=== PATIENT | female | born 1940 | race Caucasian/White ===

== ENCOUNTER → 2020-07-22 06:06 | Outpatient (CLI) | payer MEDICARE, SELFPAY ==
--- NOTE | 2020-07-22 06:08 | CA_ITS ---
APPROVED REPORT Exam: Pharmacologic Technologist: Oksana Goins Ht: 5 ft 3 in Wt: 144 lbs BSA: 1.68 m2 HR: 54 bpm BP: 180/80 mmHg Indications: Chest pain, abnormal ekg Medical History Medications: Omeprazole,,,,, Levothyroxine,,,,, Aspirin,,,,, Propranolol,,,,, Stress Test Details Test: LEXISCAN HR Resting HR: 52 bpm Max Heart Rate (APMHR): 139 bpm Max HR Achieved: 80 bpm Target HR (85% APMHR): 118 bpm % of APMHR: 57 Recovery HR: 64 bpm BP Resting BP: 180.0/80.0 mmHg Max BP: 180.0/80.0 mmHg Recovery BP: 170.0/70.0 mmHg ECG Clinical Exercise duration: 04:01 min Highest Stage Achieved: Exercise capacity: 1.0 METs Stress ECG Conclusion Resting ECG: Sinus Bradycardia Lexiscan portion completed. Patient denied any complaints during peak infusion. Symptoms: No chest pain. No shortness of breath during peak infusion. Arrhythmias/Ectopy: No ectopy ST-T Changes: Less than 1.[address] depression Conclusion: Images to follow. Test Summary . . Myoview Injected . . . . Stop exercise at 04:01 . . . . Electronically signed by : Ari Valencia, 07/23/2020 05:49:25
--- NOTE | 2020-07-22 06:08 | CA_ITS ---
APPROVED REPORT EXAM: Comprehensive 2D, Doppler, and color-flow Echocardiogram Wood Type Cutter: Sigrid Monte RVT Ht: 5 ft 3 in Wt: 144lbs BSA: 1.68 BP: 202/80 mmHg Indications: CP,ABN EKG,EX SMOKER,HTN 2D Dimensions LVOT 1.69 cm (M/F) 1.5-2.5 M-Mode Dimensions RVDd 2.94 cm (0.9-2.6) LA Diam 3.39 cm (1.9-4.0) LVDd 4.45 cm (3.5-5.7) Ao Diam 2.82 cm (2.0-3.7) LVDs 2.66 cm (3.5-5.7) IVSd 0.91 cm (0.6-1.1) PWd 1.16 cm (0.6-1.1) EF (Teich) 71.10% FS 40.20% EDV (Teich) 90.10 mL ESV (Teich) 26.00 mL LV Diastology E Decel Time 153.00 (160-240 msec) E/A Ratio 0.7 MED E' 6.00 (< 7 cm/sec) E'/MED E' Ratio 9.07 (>14) LAT E' 12.30 (<10 cm/sec) E/LAT E' Ratio 4.42 (>14) Aortic Valve AI PHT 726.00 ms Mitral Valve MV E Max Kai. 54.00 (40-130 cm/s) MV A Velocity 75.00 (40-130 cm/s) E/A Ratio 0.73 MV Decel. Time 153.00 (160-240 ms) MV PHT 45.00 ms Pulmonary Valve PV Peak Velocity 107.00 (50-150 cm/s) Tricuspid Valve TR P. Velocity 204.00 cm/s Left Ventricle Left atrium is mildly enlarged, left ventricle is normal size, mild concentric left ventricular hypertrophy, visually estimated ejection fraction 55% with no regional wall motion abnormality, grade 1 diastolic dysfunction seen without tissue Doppler evidence of raise left atrial pressure. Right Ventricle Right atrium and right ventricle are mildly enlarged with normal contractility. Aortic Valve Aortic valve is minimally thickened and fibrosed, there is no aortic stenosis, there is mild aortic insufficiency. Mitral Valve Mitral valve is grossly normal, there is mild mitral regurgitation. Tricuspid Valve Tricuspid valve is grossly normal, there is mild tricuspid regurgitation, tricuspid regurgitation jet velocity is inadequate for calculation of the right ventricular systolic pressure. Pulmonic Valve Pulmonic valve is poorly visualized. Great Vessels Aortic root is normal size. Pericardium No significant pericardial effusion noted. Conclusion 1. Mild biatrial enlargement, normal left ventricular size, mild concentric left ventricular hypertrophy, visually estimated ejection fraction 55% with no regional wall motion abnormality, grade 1 diastolic dysfunction seen without tissue Doppler evidence of raise left atrial pressure. 2. Mildly enlarged right ventricle with normal contractility. 3. Mild aortic, mild mitral and tricuspid regurgitation. 4. No significant pericardial effusion noted. Electronically signed by : Ari Valencia, 07/23/2020 05:28:52
--- NOTE | 2020-07-22 06:08 | NM_ITS ---
APPROVED REPORT Exam: Nuclear Stress Test Indication: HTN, Chest pain, Family history, Former tobacco use, Abnormal EKG Patient Location: Outpatient Stress Tech: Oksana Goins NM Tech:Vonnie Rich, ARRT, RT (R)(N) Ht: 5 ft 4 in Wt: 145 lbs Bra Size: 34D HR: 54 bpm BP: 180/80 mmHg BSA: 1.71 m2 BMI: 24.8 History: HTN, Chest pain, Family history, Former tobacco use, Abnormal EKG Procedure: Patient received a 0.4 mg of intravenous Lexiscan, resting heart rate 54 bpm, resting blood pressure 180/80 mmHg, with Lexiscan maximum heart rate achived was 77 bpm which is Less than 85 % of the maximum predicted heart rate and blood pressure was 166/83 mmHg. With Lexiscan, patient denied any complaint of chest pain. Electrocardiogram Resting electrocardiogram showed sinus rhythm, nonspecific ST-T changes, with Lexiscan there is less than 1.[address] segment depression noted from the baseline EKG. The EKG portion of the Lexiscan is nondiagnostic. Cardiac Stress and Resting SPECT Images: Cardiac Stress and Resting SPECT images were obtained using technetium 99m Myoview 30.0 mCi stress and 10.73 mCi at rest. Gated SPECT for analysis of segmental wall motion and calculation of the ejection fraction also done. Cardiac stress and resting SPECT images show uniform myocardial activity without segmental perfusion abnormality, computer derived ejection fraction is 49% with no regional wall motion abnormality, right ventricle is normal size and contractility. Conclusion: 1. The EKG portion of the Lexiscan Myoview is nondiagnostic. 2. No scintigraphic evidence of reversible ischemia seen, computer derived ejection fraction is 49% with no regional wall motion abnormality, right ventricle is normal size and contractility. 3. Normal Lexiscan Myoview study. Electronically signed by : Ari Valencia, 07/23/2020 05:58:10
--- NOTE | 2020-07-22 08:39 | HMH.ITSHM ---
Current Home Medications as stated by this patient Alayna Mcknight or policy services representative. []PROPRANOLOL OMEPRAZOLE LEVOTHYROXINE
== END ==
PROVIDERS: PCP Family Medicine; Visit Provider Internal Medicine Cardiovascular Disease
DX: R07.9 Chest pain, unspecified (principal); R94.31 Abnormal electrocardiogram [ECG] [EKG]; Z85.850 Personal history of malignant neoplasm of thyroid
CPT/HCPCS: 78452; 93017; 93306; A9502; J2785

== ENCOUNTER → 2020-08-03 09:30 | Outpatient (CLI) | payer MEDICARE, SELFPAY ==
[2020-08-03 10:11] LABS: Basophils # 0.1 K/mm3 (0-0.2); Basophils % 0.9 % (0.1-2.0); Eosinophils # 0.2 K/mm3 (0.0-0.4); Eosinophils % 2.8 % (0.1-12.0); Hematocrit 43.1 % (37.0-47.0); Hemoglobin 14.3 g/dL (12.2-16.2); Lymphocytes # 1.6 K/mm3 (0.7-4.5); Lymphocytes % 26.5 % (10-50); Mean Corpuscular HGB Conc 33.1 g/dL (31.8-35.4); Mean Corpuscular Hemoglobin 29.6 pg (27.0-31.2); Mean Corpuscular Volume 89.5 fl (81-99); Mean Platelet Volume 7.6 fl (7.4-10.4); Monocytes # 0.4 K/mm3 (0.1-1.0); Monocytes % 6.1 % (1.7-9.3); Neutrophils # 3.7 K/mm3 (1.8-7.8); Neutrophils % 63.7 % (37.0-80.0); Platelet Count 216 K/mm3 (142-424); Red Blood Count 4.82 M/mm3 (4.20-5.40); Red Cell Distribution Width 12.6 % (11.5-17.5); White Blood Count 5.8 K/mm3 (4.8-10.8)
[2020-08-03 10:25] LABS: Chloride 101 mmol/L (98-107); Potassium 4.8 mmoL/L (3.5-5.1); Sodium 138 mmol/L (136-145)
[2020-08-03 10:28] LABS: Anion Gap 10.8 mEq/L (5-15); Blood Urea Nitrogen 20 mg/dl (7-17); Calcium 9.9 mg/dl (8.4-10.2); Carbon Dioxide 31 mmol/L (22.0-30.0); Estimated Glomerular Filt Rate 69 ml/min (>60); GFR (African American) 83 ML/MIN (>60); Glucose 94 mg/dl (74-100)
[2020-08-03 10:45] LABS: Coronavirus 19 IgG Antibody Positive (Negative); Coronavirus 19 IgM Antibody Negative (Negative)
== END ==
PROVIDERS: Visit Provider Internal Medicine
DX: Z01.818 Encounter for other preprocedural examination (principal); R07.9 Chest pain, unspecified
CPT/HCPCS: 36415; 80048; 85025; 86328

== ENCOUNTER 2020-08-05 07:53 | Day surgery (SDC) | payer MEDICARE, SELFPAY ==
[2020-08-05] VITALS (13 sets, daily range): BP systolic 124–214; BP diastolic 3–108; PULSE 47–60; RESP 17–18; TEMP 36.5; O2SAT 95–100; BMI 25.4
--- NOTE | 2020-08-05 | IR_ITS ---
APPROVED REPORT Patient Location: Outpatient PROCEDURES Left heart catheterization Selective coronary angiogram Left ventriculogram INDICATION recalcitrant angina pectoris Informed consent was obtained prior to the procedure. COMPLICATIONS NONE Estimated Blood Loss: LESS THAN 10 ML TECHNIQUE One percent lidocaine used to anesthetize the right anterior aspect of the wrist. The right radial artery was accessed via the Seldinger technique. A 6 Icelandic sheath was placed in the right radial artery. 2.5 mg of verapamil, 800 mcg of nitroglycerin, 1mg Lidocaine and 5000 U Heparin were given through the arterial sheath. The trap catheter was also used to perform left heart catheterization, left ventriculogram and selective coronary angiogram. At the end of the procedure the sheath was removed good hemostasis was achieved using Traclet band, patient was transfer to the postop holding area in stable condition. ANGIOGRAPHIC RESULTS The left main artery normal The left anterior descending artery has proximal and midvessel 10-20% atherosclerotic plague The circumflex artery Is a codominant vessel and has mild mid vessel 20% stenoses The right coronary artery Is a large codominant vessel and has mild-moderate mid vessel 30 to 40% concentric stenosis The KATE ventriculogram reveals Normal 65% The left ventricular end-diastolic pressure 10 mmHg IMPRESSION Mild to moderate nonflow limiting coronary artery disease as described above Normal ejection fraction Normal left ventricular end-diastolic pressure PLAN 1. Medical management Electronically signed by : Anthony Song, 08/05/2020 10:07:12
== END 2020-08-05 13:36 | disposition home or self-care (01) ==
LOC: CATHLAB 07:55
PROVIDERS: PCP Family Medicine; Visit Provider Internal Medicine
DX: R07.9 Chest pain, unspecified (principal); I25.10 Atherosclerotic heart disease of native coronary artery without angina pectoris; Z87.891 Personal history of nicotine dependence; Z85.850 Personal history of malignant neoplasm of thyroid; E03.9 Hypothyroidism, unspecified; Z79.899 Other long term (current) drug therapy
CPT/HCPCS: 93458; 99152; C1725; C1769; J1644; Q9967

== ENCOUNTER → 2020-11-15 14:53 | Outpatient (CLI) | payer MEDICARE, SELFPAY ==
[2020-11-15 17:04] LABS: Basophils # 0.1 K/mm3 (0-0.2); Eosinophils # 0.2 K/mm3 (0.0-0.4); Eosinophils % 3.5 % (0.1-12.0); Hematocrit 40.5 % (37.0-47.0); Lymphocytes # 1.7 K/mm3 (0.7-4.5); Lymphocytes % 25.6 % (10-50); Mean Corpuscular HGB Conc 32.2 g/dL (31.8-35.4); Mean Corpuscular Hemoglobin 29.9 pg (27.0-31.2); Mean Corpuscular Volume 92.8 fl (81-99); Mean Platelet Volume 8.1 fl (7.4-10.4); Monocytes # 0.4 K/mm3 (0.1-1.0); Monocytes % 5.2 % (1.7-9.3); Neutrophils # 4.3 K/mm3 (1.8-7.8); Neutrophils % 64.7 % (37.0-80.0); Platelet Count 203 K/mm3 (142-424); Red Blood Count 4.36 M/mm3 (4.20-5.40); Red Cell Distribution Width 12.9 % (11.5-17.5); White Blood Count 6.7 K/mm3 (4.8-10.8)
[2020-11-15 17:09] LABS: Alanine Aminotransferase 12 U/L (12-78); Albumin Level 3.7 g/dl (3.5-5.0); Albumin/Globulin Ratio 1.1 (1.1-1.8); Alkaline Phosphatase 83 U/L (38-126); Anion Gap 10.6 mEq/L (5-15); Aspartate Amino Transferase 24 U/L (14-36); Bilirubin,Total 0.8 mg/dl (0.2-1.3); Blood Urea Nitrogen 20 mg/dl (7-17); Calcium 9.4 mg/dl (8.4-10.2); Carbon Dioxide 28 mmol/L (22.0-30.0); Chloride 105 mmol/L (98-107); Cholesterol 132 mg/dl (140-200); Estimated Glomerular Filt Rate 80 ml/min (>60); GFR (African American) 97 ML/MIN (>60); Globulin 3.3 g/dL (1.3-3.2); Glucose 105 mg/dl (74-100); HDL Cholesterol 67 mg/dl (40-60); Potassium 4.6 mmoL/L (3.5-5.1); Sodium 139 mmol/L (136-145); Triglycerides 82 mg/dl (30-150); VLDL Cholesterol 16 mg/dL (0-40)
[2020-11-15 17:20] LABS: Direct LDL Cholesterol 43.35 mg/dL (100-129)
[2020-11-15 17:26] LABS: T4 (Thyroxine) 15.5 ug/dl (5.53-11.0)
[2020-11-15 17:40] LABS: Thyroid Stimulating Hormone < 0.02 uIU/mL (0.465-4.68)
== END ==
PROVIDERS: Visit Provider Family Medicine
DX: E78.5 Hyperlipidemia, unspecified (principal); I10 Essential (primary) hypertension; I25.10 Atherosclerotic heart disease of native coronary artery without angina pectoris; Z85.850 Personal history of malignant neoplasm of thyroid
CPT/HCPCS: 80053; 80061; 84436; 84443; 85025

== ENCOUNTER → 2021-05-16 15:30 | Outpatient (CLI) | payer MEDICARE, SELFPAY ==
[2021-05-16 16:26] LABS: Free T4 (Free Thyroxine) 1.73 ng/dl (0.78-2.19)
[2021-05-16 18:02] LABS: Thyroid Stimulating Hormone < 0.02 uIU/mL (0.465-4.68)
== END ==
PROVIDERS: Visit Provider Family Medicine
DX: E03.9 Hypothyroidism, unspecified (principal)
CPT/HCPCS: 84439; 84443

== ENCOUNTER → 2022-05-09 09:26 | Outpatient (CLI) | payer MEDICARE, SELFPAY ==
[2022-05-08 19:01] LABS: Alanine Aminotransferase 15 U/L (12-78); Albumin Level 3.5 g/dl (3.5-5.0); Albumin/Globulin Ratio 1.1 (1.1-1.8); Alkaline Phosphatase 93 U/L (38-126); Anion Gap 9.9 mEq/L (5-15); Aspartate Amino Transferase 31 U/L (14-36); Bilirubin,Total 0.7 mg/dl (0.2-1.3); Blood Urea Nitrogen 18 mg/dl (7-17); Calcium 9.3 mg/dl (8.4-10.2); Carbon Dioxide 28 mmol/L (22.0-30.0); Chloride 106 mmol/L (98-107); Estimated Glomerular Filt Rate 80 ml/min (>60); GFR (African American) 97 ML/MIN (>60); Globulin 3.3 g/dL (1.3-3.2); Glucose 124 mg/dl (74-100); Potassium 4.9 mmoL/L (3.5-5.1); Sodium 139 mmol/L (136-145); Total Protein,Serum 6.8 g/dl (6.3-8.2)
[2022-05-08 19:18] LABS: T4 (Thyroxine) 13.4 ug/dl (5.53-11.0)
[2022-05-08 19:32] LABS: Thyroid Stimulating Hormone < 0.02 uIU/mL (0.465-4.68)
== END ==
PROVIDERS: PCP Family Medicine; Visit Provider Family Medicine
DX: E78.5 Hyperlipidemia, unspecified (principal)
CPT/HCPCS: 80053; 84436; 84443

== ENCOUNTER → 2023-06-23 11:12 | Outpatient (CLI) | payer MEDICARE, SELFPAY ==
[2023-06-23 18:41] LABS: Basophils # 0.1 K/mm3 (0-0.2); Basophils % 0.7 % (0.1-2.0); Eosinophils # 0.1 K/mm3 (0.0-0.4); Eosinophils % 1.4 % (0.1-12.0); Hematocrit 36.7 % (37.0-47.0); Hemoglobin 12.1 g/dL (12.2-16.2); Lymphocytes # 1.4 K/mm3 (0.7-4.5); Mean Corpuscular HGB Conc 33.1 g/dL (31.8-35.4); Mean Corpuscular Hemoglobin 30.4 pg (27.0-31.2); Mean Corpuscular Volume 91.8 fl (81-99); Mean Platelet Volume 8.3 fl (7.4-10.4); Monocytes # 0.3 K/mm3 (0.1-1.0); Monocytes % 4.2 % (1.7-9.3); Neutrophils # 5.1 K/mm3 (1.8-7.8); Neutrophils % 73.7 % (37.0-80.0); Platelet Count 203 K/mm3 (142-424); Red Blood Count 3.99 M/mm3 (4.20-5.40); Red Cell Distribution Width 13.7 % (11.5-17.5); White Blood Count 6.9 K/mm3 (4.8-10.8)
[2023-06-23 20:52] LABS: Alanine Aminotransferase 15 U/L (12-78); Albumin Level 3.7 g/dl (3.5-5.0); Albumin/Globulin Ratio 0.9 (1.1-1.8); Alkaline Phosphatase 96 U/L (38-126); Aspartate Amino Transferase 30 U/L (14-36); Bilirubin,Total 0.8 mg/dl (0.2-1.3); Blood Urea Nitrogen 19 mg/dl (7-17); Calcium 9.5 mg/dl (8.4-10.2); Carbon Dioxide 28 mmol/L (22.0-30.0); Chloride 102 mmol/L (98-107); Chol/HDL Ratio 2.4 (1-3.5); Cholesterol 132 mg/dl (140-200); Estimated Glomerular Filt Rate 60 ml/min (>60); GFR (African American) 72 ML/MIN (>60); Glucose 105 mg/dl (74-100); HDL Cholesterol 56 mg/dl (40-60); Sodium 139 mmol/L (136-145); Total Protein,Serum 7.7 g/dl (6.3-8.2); Triglycerides 65 mg/dl (30-150); VLDL Cholesterol 13 mg/dL (0-40)
[2023-06-23 21:03] LABS: Direct LDL Cholesterol 56.95 mg/dL (100-129)
[2023-06-23 21:22] LABS: Thyroid Stimulating Hormone 0.08 uIU/mL (0.465-4.68)
== END ==
PROVIDERS: PCP Family Medicine; Visit Provider Family Medicine
DX: R05.9 Cough, unspecified (principal); E07.9 Disorder of thyroid, unspecified; I25.10 Atherosclerotic heart disease of native coronary artery without angina pectoris; I10 Essential (primary) hypertension; Z87.891 Personal history of nicotine dependence
CPT/HCPCS: 80053; 80061; 84443; 85025

== ENCOUNTER → 2023-08-11 08:36 | Outpatient (CLI) | payer MEDICARE, SELFPAY ==
[2023-08-11 18:39] LABS: MANUAL DIFFERENTIAL MANUAL DIFFERENTIAL (MANUAL DIFF)
[2023-08-11 19:06] LABS: Basophils % 0.3 % (0.1-2.0); Eosinophils # 0.1 K/mm3 (0.0-0.4); Eosinophils % 1.6 % (0.1-12.0); Hematocrit 33.5 % (37.0-47.0); Hemoglobin 10.8 g/dL (12.2-16.2); Lymphocytes # 1.7 K/mm3 (0.7-4.5); Lymphocytes % 22.8 % (10-50); Mean Corpuscular HGB Conc 32.3 g/dL (31.8-35.4); Mean Corpuscular Hemoglobin 29.4 pg (27.0-31.2); Mean Platelet Volume 8.9 fl (7.4-10.4); Monocytes # 0.4 K/mm3 (0.1-1.0); Monocytes % 5.6 % (1.7-9.3); Neutrophils # 5.2 K/mm3 (1.8-7.8); Neutrophils % 69.6 % (37.0-80.0); Platelet Count 259 K/mm3 (142-424); Red Blood Count 3.68 M/mm3 (4.20-5.40); Red Cell Distribution Width 13.7 % (11.5-17.5); White Blood Count 7.4 K/mm3 (4.8-10.8)
[2023-08-11 19:25] LABS: Alanine Aminotransferase 12 U/L (12-78); Albumin Level 3.4 g/dl (3.5-5.0); Albumin/Globulin Ratio 0.9 (1.1-1.8); Alkaline Phosphatase 90 U/L (38-126); Anion Gap 12.2 mEq/L (5-15); Aspartate Amino Transferase 34 U/L (14-36); Bilirubin,Total 0.7 mg/dl (0.2-1.3); Blood Urea Nitrogen 22 mg/dl (7-17); Calcium 8.7 mg/dl (8.4-10.2); Carbon Dioxide 27 mmol/L (22.0-30.0); Chloride 101 mmol/L (98-107); Estimated Glomerular Filt Rate 53 ml/min (>60); GFR (African American) 64 ML/MIN (>60); Globulin 3.8 g/dL (1.3-3.2); Glucose 99 mg/dl (74-100); Potassium 4.2 mmoL/L (3.5-5.1); Sodium 136 mmol/L (136-145); Total Protein,Serum 7.2 g/dl (6.3-8.2)
[2023-08-11 19:55] LABS: Thyroid Stimulating Hormone < 0.02 uIU/mL (0.465-4.68)
[2023-08-11 20:03] LABS: Eosinophils % 1 % (0-3); Lymphocytes % 30 % (10-50); Monocytes % 1 % (2-9); Neutrophils % 68 % (42-76); Platelet Estimate Normal; RBC Morphology Normal; Total Cells Counted 100
== END ==
PROVIDERS: PCP Family Medicine; Visit Provider Family Medicine
DX: R63.0 Anorexia (principal)
CPT/HCPCS: 80053; 84443; 85007; 85014; 85018; 85048; 85049

== ENCOUNTER → 2023-08-18 08:26 | Outpatient (CLI) | payer MEDICARE, SELFPAY ==
--- NOTE | 2023-08-18 08:35 | US_ITS ---
FINAL REPORT CLINICAL HISTORY: Weight loss; loss of appetite FINDINGS: RIGHT UPPER QUADRANT ULTRASOUND Sonographic images of the right upper quadrant were obtained. The pancreas is partially obscured.The liver has an unremarkable appearance. There are multiple gallstones. The common duct measures 3 mm. There is a cyst in the right kidney measuring 11 mm. IMPRESSION: Cholelithiasis. Right renal cyst. Reviewed, Interpreted and Dictated by Juventino Saha III, MD Transcribed by Otilia Alvarez Authenticated and [facility]
== END ==
PROVIDERS: PCP Family Medicine; Visit Provider Family Medicine
DX: R63.0 Anorexia (principal)
CPT/HCPCS: 76705

== ENCOUNTER 2023-09-21 06:05 | Day surgery (SDC) | payer MEDICARE, SELFPAY ==
[2023-09-21] MEDS: LACTATED RINGERS 1000ML 1,000 ML 100 ML IV (06:26)
[2023-09-21 06:28] VITALS: BP 202/93; PULSE 59; RESP 18; TEMP 37.1; O2SAT 97
--- NOTE | 2023-09-21 07:14 | P.PNANES_ITS ---
[facility] Disclaimer: The information contained in this section may have been updated after the patient was seen, as this information can be updated by other users. Medical History History of cataract Hyperlipidemia Hypertension Thyroid cancer Surgical History H/O thyroidectomy History of eye surgery Hx of cataract surgery Family History Other History of cancer Social History Smoking Status: Never smoker second hand exposure: No alcohol intake: never substance use type: denies use current occupational status: retired Travel in the last 8 weeks: None household members: none housing: house current occupational exposures/hazards: No caffeine: Yes [facility] Anesthesia Checklist Patient Identification Patient Identification: Arm Band and Verbal (Name & ) Structural Data Admitted From: Home Planned Operative Procedure/s: EGD Consent for Planned Operative Procedure(s) Verified: Yes NPO Status Verified Time NPO: 00:00 Additional verifications Anesthesia Reactions: No Airway Assessment Mallampati Score:: Class I C-Spine Mobility Assessed: Yes TMJ Mobility Assessed: Yes Dentition: Edentulous Neurological Assessment Level of Consciousness: Awake Hx Seizures: No Numbness or tingling in extremities: No Anesthesia Plan Anesthesia Risk discussed: Yes Anesthesia Plan: Verified ASA Class: III Anesthesia Type: MAC
[2023-09-21 07:27] VITALS: O2SAT 96
[2023-09-21 07:39] VITALS: BP 124/63; PULSE 63; RESP 17; TEMP 36.7; O2SAT 97
--- NOTE | 2023-09-21 07:39 | HMH.SCOPE ---
Procedure: Date: 09/21/23 Patient Date of :: 1940 Procedure Performed:: Esophagogastroduodenoscopy with biopsy Indications:: Nausea Weight loss Performing Provider:: Ty Sawant MD Referring Provider:: Dr. Greenfield Sedation:: Monitored anesthesia care Procedure:: After informed consent was obtained the patient was taken to the endoscopy suite. Sedation ensued after the patient was transferred to the left lateral decubitus position. Pulse, blood pressure, and oxygen saturation were monitored throughout the procedure. The endoscope was advanced beyond the duodenal bulb. Retroflexion within the gastric lumen was accomplished. The gastroscope was carefully removed and the patient was transferred to recovery in stable condition. Please see findings and specimens below for detail. Findings:: Gastroesophageal junction at 38 cm Small sliding hiatal hernia Proximal/mid gastric body contour consistent with external compression Mild scattered gastritis Specimens:: Antral biopsy Recommendations:: Follow-up pathology Consider CT chest secondary to somewhat pronounced contour/possible external compression of proximal/mid gastric body Discuss recent findings of cholelithiasis noted per ultrasound at follow-up appointment Complications:: No immediate Estimated blood obtained (mL): 1 Colonoscopy Component Colonoscopy Component Was a colonoscopy performed during today's procedure?: No
[2023-09-21 07:49] VITALS: BP 120/62; PULSE 63; RESP 16; O2SAT 98
[2023-09-21 07:59] VITALS: BP 143/68; PULSE 68; RESP 17; O2SAT 95
[2023-09-21 08:09] VITALS: BP 157/71; PULSE 59; RESP 17; O2SAT 96
== END 2023-09-21 08:15 | disposition home or self-care (01) ==
PROVIDERS: PCP Family Medicine; Visit Provider Surgery
PROC: 0DJ08ZZ Inspection of Upper Intestinal Tract, Via Natural or Artificial Opening Endoscopic (ICD-10-PCS; CPT 43235; principal; 2023-09-21 07:30)
DX: K29.50 Unspecified chronic gastritis without bleeding (principal); K31.A0 Gastric intestinal metaplasia, unspecified; K44.9 Diaphragmatic hernia without obstruction or gangrene; R11.0 Nausea; R63.4 Abnormal weight loss
CPT/HCPCS: 43239; 88305; 88342

== ENCOUNTER 2023-09-29 10:33 | Outpatient (CLI) | payer MEDICARE, SELFPAY ==
--- NOTE | 2023-09-29 10:43 | ECG_ITS ---
APPROVED REPORT Exam: Resting ECG HR:51 bpm ECG Measurements Heart Rate 51 AXES GA 177 P 72 QRSd 95 QRS 64 QT 412 T 84 QTc 389 Conclusion SINUS BRADYCARDIA NONSPECIFIC ST & T-WAVE ABNORMALITY BORDERLINE ECG UNCONFIRMED REPORT Electronically signed by : Anthony Burks MD 09/30/2023 21:27:01
[2023-09-29 11:01] LABS: Basophils % 0.5 % (0.1-2.0); Eosinophils # 0.3 K/mm3 (0.0-0.4); Hematocrit 37.6 % (37.0-47.0); Hemoglobin 12.3 g/dL (12.2-16.2); Lymphocytes # 1.6 K/mm3 (0.7-4.5); Mean Corpuscular HGB Conc 32.8 g/dL (31.8-35.4); Mean Corpuscular Hemoglobin 29.5 pg (27.0-31.2); Mean Corpuscular Volume 89.9 fl (81-99); Mean Platelet Volume 7.7 fl (7.4-10.4); Monocytes # 0.4 K/mm3 (0.1-1.0); Neutrophils # 6.5 K/mm3 (1.8-7.8); Neutrophils % 74.5 % (37.0-80.0); Platelet Count 275 K/mm3 (142-424); Red Blood Count 4.18 M/mm3 (4.20-5.40); Red Cell Distribution Width 13.6 % (11.5-17.5); White Blood Count 8.7 K/mm3 (4.8-10.8)
[2023-09-29 12:06] LABS: Chloride 102 mmol/L (98-107); Potassium 3.8 mmoL/L (3.5-5.1); Sodium 138 mmol/L (136-145)
[2023-09-29 12:09] LABS: Alanine Aminotransferase 18 U/L (12-78); Albumin Level 3.6 g/dl (3.5-5.0); Albumin/Globulin Ratio 0.9 (1.1-1.8); Alkaline Phosphatase 97 U/L (38-126); Anion Gap 11.8 mEq/L (5-15); Aspartate Amino Transferase 26 U/L (14-36); Bilirubin,Total 0.9 mg/dl (0.2-1.3); Blood Urea Nitrogen 17 mg/dl (7-17); Calcium 9.3 mg/dl (8.4-10.2); Carbon Dioxide 28 mmol/L (22.0-30.0); Estimated Glomerular Filt Rate 60 ml/min (>60); GFR (African American) 72 ML/MIN (>60); Globulin 4.2 g/dL (1.3-3.2); Glucose 109 mg/dl (74-100); Total Protein,Serum 7.8 g/dl (6.3-8.2)
== END 2023-09-29 23:59 ==
LOC: LAB 10:35
PROVIDERS: PCP Family Medicine; Visit Provider Surgery
DX: K80.20 Calculus of gallbladder without cholecystitis without obstruction (principal)
CPT/HCPCS: 36415; 80053; 85025; 93005

== ENCOUNTER 2023-10-07 06:48 | Day surgery (SDC) | payer MEDICARE, SELFPAY ==
[2023-10-07] VITALS (10 sets, daily range): BP systolic 156–200; BP diastolic 68–89; PULSE 54–65; RESP 15–20; TEMP 36.1–36.6; O2SAT 91–99
[2023-10-07] MEDS: LACTATED RINGERS 1000ML 1,000 ML 25 ML IV (07:24)
--- NOTE | 2023-10-07 07:43 | P.PNANES_ITS ---
[facility] Disclaimer: The information contained in this section may have been updated after the patient was seen, as this information can be updated by other users. Medical History History of cataract Hyperlipidemia Hypertension Thyroid cancer Surgical History H/O thyroidectomy History of esophagogastroduodenoscopy (EGD) History of eye surgery Hx of cataract surgery Family History Other History of cancer Social History Smoking Status: Never smoker second hand exposure: No alcohol intake: never substance use type: denies use current occupational status: retired Travel in the last 8 weeks: None household members: none housing: house current occupational exposures/hazards: No caffeine: Yes [facility] Anesthesia Checklist Patient Identification Patient Identification: Arm Band Structural Data Admitted From: Home Planned Operative Procedure/s: Laparoscopic Cholecystectomy Consent for Planned Operative Procedure(s) Verified: Yes Verified Documents: Surgical Consent and History and Physical NPO Status Verified Time NPO: 00:00 Additional verifications Anesthesia Reactions: No Hx Blood Transfusions: No Blood Transfusion Reaction: No Airway Assessment C-Spine Mobility Assessed: Yes TMJ Mobility Assessed: Yes Dentition: Edentulous Neurological Assessment Level of Consciousness: Awake and Alert Anesthesia Plan Anesthesia Risk discussed: Yes Anesthesia Plan: Verified ASA Class: II Anesthesia Type: General Preoperative Comments Pre-Operative Comments: >4 METS
[2023-10-07] MEDS: CEFAZOLIN SODIUM 1 GM in 0.9 % SODIUM CHLORIDE 50 ML IV (08:45)
[2023-10-07] MEDS: LIDOCAINE 1% 30ML PF VIAL 30 ML (08:55)
--- NOTE | 2023-10-07 09:56 | P.OP_ITS ---
Date of procedure: 10/07/23 Pre-op Diagnosis:: Symptomatic cholelithiasis Post-op Diagnosis:: Chronic calculus cholecystitis Procedure performed:: Laparoscopic cholecystectomy Surgeon:: Ty Sawant MD BIG DATA PLATFORM ARCHITECT:: Sascha Solo Anesthesia: GETA Estimated blood loss (mL): 15 Operative findings:: Fairly severe pericholecystic fat stranding Atypical umbilical placement (cephalad) Lower midline/suprapubic trocar site utilized instead of subxiphoid secondary to atypical umbilical placement (cephalad) Operative note:: After informed consent was obtained, the patient was taken to the operating room and placed in the supine position. General anesthesia was induced and the abdomen was prepped and draped in a sterile fashion. After infiltration with local anesthetic a supraumbilical incision was made. A Veress needle was placed in position. The abdomen was insufflated. A 5 mm optical trocar was placed in position. Visualization revealed fairly severe cephalad umbilical placement/displacement. Therefore the decision was made to place the 12 mm trocar in the lower midline/suprapubic position as opposed to subxiphoid position. This would allow utilization of the lower trocar instead of the umbilical trocar for camera site . As stated above, a 12 mm trocar was placed in the lower midline/suprapubic position under direct visualization. 2 additional 5 mm trocars were then placed under direct visualization in the right upper quadrant. The gallbladder was elevated up and over the liver margin. Fairly severe soft tissue stranding noted. The tissue around the cystic duct was carefully dissected. 3 clips were placed proximally and the duct was transected with harmonic marine. Harmonic marine were then utilized to dissect the gallbladder away from the liver margin with careful attention to the control of the cystic artery. The gallbladder was placed in a retrieval bag and removed through the lower midline/suprapubic trocar site. The right upper quadrant was thoroughly irrigated. No active bleeding or bile leak was noted. Fascia at the lower midline/suprapubic trocar site was reapproximated utilizing 0 Ethibond. The remaining trocars were removed. All wounds were irrigated and skin was closed with 4-0 Monocryl in a mattress fashion to facilitate hemostasis. The patient's anesthetic agents were reversed and extubation was completed prior to transfer to recovery in stable condition. Condition: stable Disposition: PACU Specimens:: Gallbladder and contents Complications:: No immediate
--- NOTE | 2023-10-07 10:06 | EXP.ANES.I ---
[facility] Anesthesia Record Part I Anesthesia Record I Intake, IV Amount: 200 Hydration: Adequate Estimated blood loss (mL): 15 Urine output (mL): 0 Blood Pressure: 163/72 SaO2: 99 Pulse Rate: 62 Airway Patency: Patent Respiratory Rate: 15 Temperature: 97 F Patient is:: Awake Stable to PACU at:: 10:00
[2023-10-07] MEDS: MORPHINE 2MG/ML SYRINGE 1 MG IV (10:30)
--- NOTE | 2023-10-07 11:06 | SUR.PHASEI ---
1000- Crepitus noted in upper chest and neck on arrival to PACU. MD notified and anesthesia aware of condition. VSS, no further orders at this time.
--- NOTE | 2023-10-07 11:16 | SUR.PHASEII ---
1037 - Received in report from Sejal Marroquin RN that pt has crepitus present in upper chest extending into neck. MD is aware of this and f/u chest ct has been ordered outpt. Upon assessment crepitus is noted upon palpation and auscultation in upper chest extending up right side of neck. Pt denies pain, SOA, chest pain or any related discomfort. Sejal Marroquin RN reports improvement of crepitus compared to initial assessment when pt arrived to PACU. Pt resting in bed in post op, VSS, call hayes w/in reach, no complaints.
--- NOTE | 2023-10-08 11:50 | EXP.ANES.II ---
[facility] Anesthesia Record Part II Anesthesia Record Part II Discharge Time: 10:35 Destination: Surgical Day Care (OP Surgery) PACU nurse assessment reviewed?: Yes Patient Condition:: Good Anesthesia Complications:: None Swallowing reflex intact?: Yes Airway Patency: Patent Cyanosis?: No Blood Pressure: 166/68 SaO2: 95 Respiratory Rate: 20 Pulse Rate: 62 Temperature: 97.2 F Mental Status: Alert & Oriented Pain level:: 2 Nausea and/or vomitting:: None Intake, IV Amount: 0 Hydration: Adequate
[2023-10-08 11:51] VITALS: BP 166/68; PULSE 62; RESP 20; TEMP 36.2; O2SAT 95
== END 2023-10-07 11:06 | disposition home or self-care (01) ==
PROVIDERS: PCP Family Medicine; Visit Provider Surgery
PROC: 0FT44ZZ Resection of Gallbladder, Percutaneous Endoscopic Approach (ICD-10-PCS; CPT 47562; principal; 2023-10-07 08:30)
DX: K80.10 Calculus of gallbladder with chronic cholecystitis without obstruction (principal)
CPT/HCPCS: 47562; 88304; 96374; J2405

== ENCOUNTER 2023-10-13 09:19 | Outpatient (CLI) | payer MEDICARE, SELFPAY ==
--- NOTE | 2023-10-13 09:20 | CT_ITS ---
FINAL REPORT TECHNIQUE: After the administration of intravenous contrast, axial images through the chest were performed by computed tomography.This study was performed with techniques to keep radiation doses as low as reasonably achievable, (ALARA). Individualized dose reduction techniques using automated exposure control or adjustment of mA and/or kV according to the patient''s size were employed. CLINICAL HISTORY: compression esophagus FINDINGS: There are extensive multifocal airspace opacities, could represent pneumonia although non infectious entities such as sarcoidosis or BOOP or atypical infection would be other considerations. Findings are most pronounced in the right upper lobe. No adenopathy or mediastinal mass seen displacing or compressing the esophagus. There is no pleural or pericardial effusion. IMPRESSION: No adenopathy or mediastinal mass. Multifocal airspace opacities. Recommend three-month chest CT follow-up. Reviewed, Interpreted and Dictated by Pauline Flores MD Transcribed by Otilia Alvarez Authenticated and [facility][1]
[2023-10-13] MEDS: SODIUM CHLORIDE 0.9% 10ML SYR (RAD ONLY) 10 ML IV (10:17)
[2023-10-13] MEDS: IOPAMIDOL-370 (76%);100ML BOTTLE 75 ML IV (10:17)
== END 2023-10-13 23:59 ==
LOC: RAD 09:20
PROVIDERS: PCP Family Medicine; Visit Provider Surgery
DX: K22.2 Esophageal obstruction (principal)
CPT/HCPCS: 71260; Q9967

== ENCOUNTER 2023-11-24 19:50 | Outpatient (CLI) | payer MEDICARE, SELFPAY ==
[2023-11-24 19:24] LABS: Alanine Aminotransferase 10 U/L (12-78); Albumin Level 3.4 g/dl (3.5-5.0); Albumin/Globulin Ratio 0.9 (1.1-1.8); Alkaline Phosphatase 95 U/L (38-126); Anion Gap 9.5 mEq/L (5-15); Aspartate Amino Transferase 23 U/L (14-36); Bilirubin,Total 0.6 mg/dl (0.2-1.3); Blood Urea Nitrogen 15 mg/dl (7-17); Calcium 9.3 mg/dl (8.4-10.2); Carbon Dioxide 29 mmol/L (22.0-30.0); Chloride 102 mmol/L (98-107); Estimated Glomerular Filt Rate 80 ml/min (>60); GFR (African American) 96 ML/MIN (>60); Globulin 3.6 g/dL (1.3-3.2); Glucose 122 mg/dl (74-100); Potassium 4.5 mmoL/L (3.5-5.1); Sodium 136 mmol/L (136-145)
[2023-11-24 19:48] LABS: Thyroid Stimulating Hormone < 0.02 uIU/mL (0.465-4.68)
== END 2023-11-24 23:59 ==
PROVIDERS: PCP Family Medicine; Visit Provider Family Medicine
DX: E78.5 Hyperlipidemia, unspecified (principal); Z85.850 Personal history of malignant neoplasm of thyroid
CPT/HCPCS: 80053; 84443

== ENCOUNTER 2024-02-25 18:00 | Outpatient (CLI) | payer MEDICARE, SELFPAY ==
[2024-02-25 18:53] LABS: Chloride 102 mmol/L (98-107)
[2024-02-25 18:54] LABS: Sodium 135 mmol/L (136-145)
[2024-02-25 18:56] LABS: Alanine Aminotransferase 11 U/L (12-78); Alkaline Phosphatase 89 U/L (38-126); Aspartate Amino Transferase 24 U/L (14-36); Bilirubin,Total 0.8 mg/dl (0.2-1.3); Blood Urea Nitrogen 14 mg/dl (7-17); Carbon Dioxide 27 mmol/L (22.0-30.0); Estimated Glomerular Filt Rate 80 ml/min (>60); GFR (African American) 96 ML/MIN (>60)
[2024-02-25 18:57] LABS: Albumin Level 3.1 g/dl (3.5-5.0); Albumin/Globulin Ratio 0.8 (1.1-1.8); Calcium 8.9 mg/dl (8.4-10.2); Globulin 3.9 g/dL (1.3-3.2); Glucose 98 mg/dl (74-100)
[2024-02-25 19:06] LABS: Basophils % 0.6 % (0.1-2.0); Eosinophils # 0.1 K/mm3 (0.0-0.4); Eosinophils % 1.6 % (0.1-12.0); Hemoglobin 11.2 g/dL (12.2-16.2); Lymphocytes # 1.5 K/mm3 (0.7-4.5); Lymphocytes % 19.9 % (10-50); Mean Corpuscular HGB Conc 31.1 g/dL (31.8-35.4); Mean Corpuscular Hemoglobin 29.4 pg (27.0-31.2); Mean Corpuscular Volume 94.5 fl (81-99); Mean Platelet Volume 8.3 fl (7.4-10.4); Monocytes # 0.4 K/mm3 (0.1-1.0); Neutrophils # 5.6 K/mm3 (1.8-7.8); Platelet Count 279 K/mm3 (142-424); Red Blood Count 3.81 M/mm3 (4.20-5.40); Red Cell Distribution Width 14.1 % (11.5-17.5); White Blood Count 7.6 K/mm3 (4.8-10.8)
[2024-02-25 19:12] LABS: T4 (Thyroxine) 15.4 ug/dl (5.53-11.0)
[2024-02-25 19:26] LABS: Thyroid Stimulating Hormone 1.25 uIU/mL (0.465-4.68)
== END 2024-02-25 23:59 | disposition home or self-care (01) ==
LOC: LAB.DROPOF 02-26 09:01
PROVIDERS: PCP Family Medicine; Visit Provider Family Medicine
DX: Z85.850 Personal history of malignant neoplasm of thyroid (principal); E07.9 Disorder of thyroid, unspecified; R53.83 Other fatigue
CPT/HCPCS: 80053; 84436; 84443; 85025

== ENCOUNTER 2024-02-28 12:15 | Outpatient (CLI) | payer MEDICARE, SELFPAY ==
--- NOTE | 2024-02-28 12:24 | CT_ITS ---
FINAL REPORT TECHNIQUE: Postcontrast axial images of the chest were performed in a CTA protocol. This study was performed with techniques to keep radiation doses as low as reasonably achievable, (ALARA). Individualized dose reduction technique using automated exposure control or adjustment of mA and/or kV according to the patient's size were employed. CLINICAL HISTORY: Hemoptysis COMPARISON: 10/13/2023 FINDINGS: The heart is normal in size. No adenopathy is identified. There is a small pericardial effusion. No pleural effusion is seen. The thoracic aorta is normal in caliber with no focal aneurysm or dissection identified. There is no filling defect to suggest pulmonary embolism. There is persistent, extensive airspace opacity in the right upper lobe, greatest at the lung apex which has progressed. There is now some associated nodularity which could be inflammatory or neoplastic. There are other areas of subpleural nodular and airspace opacity bilaterally which are largely stable. New focal airspace disease is seen at the right lateral lower lobe. There are emphysematous changes. IMPRESSION: No evidence for PE on this exam. Worsening lung disease, particularly at the right upper lobe apex which may be related to atypical infection such as tuberculosis or neoplasm. Consider follow-up bronchoscopy. Reviewed, Interpreted and Dictated by Pauline Flores MD Transcribed by Jewels Gonzalez Authenticated and [facility]
[2024-02-28] MEDS: 0.9 % SODIUM CHLORIDE 50 ML VIAL IV (13:12)
[2024-02-28] MEDS: IOPAMIDOL-370 (76%);100ML BOTTLE 75 ML IV (13:12)
[2024-02-28] MEDS: SODIUM CHLORIDE 0.9% 10ML SYR (RAD ONLY) 10 ML IV (13:12)
[2024-02-28 14:13] LABS: C-Reactive Protein 32.8 mg/L (0-4)
[2024-03-03 17:34] LABS: Aspergillus flavus Negative (Neg:<1:1); Aspergillus fumigatus Negative (Neg:<1:1); Aspergillus niger Negative (Neg:<1:1); Blastomyces Antibody Negative (Neg:<1:1); Histoplasma Antibody Quant Negative (Neg:<1:1)
[2024-03-25 09:59] LABS: D001-IgE D pteronyssinus <0.10; Immunoglobulin E, Total 15
[2024-03-25 10:00] LABS: D002-IgE D farinae <0.10; E001-IgE Cat Dander <0.10; E005-IgE Dog Dander <0.10; G002-IgE Bermuda Grass <0.10; G006-IgE Timothy Grass <0.10; I006-IgE Cockroach, German <0.10; M001-IgE Penicillium chrysogen <0.10; M002-IgE Cladosporium herbarum <0.10
[2024-03-25 10:01] LABS: M003-IgE Aspergillus fumigatus <0.10; M006-IgE Alternaria alternata <0.10; T001-IgE Maple/Box Elder <0.10; T003-IgE Common Silver Birch <0.10; T006-IgE Cedar, Mountain <0.10; T007-IgE Oak, White <0.10; T008-IgE Elm, American <0.10; T010-IgE Walnut <0.10; T011-IgE Maple Leaf Sycamore <0.10
[2024-03-25 10:02] LABS: T014-IgE Cottonwood <0.10; T015-IgE Ash, White <0.10; T022-IgE Pecan, Hickory <0.10; T070-IgE White Mulberry <0.10; W001-IgE Ragweed, Short <0.10; W011-IgE Thistle, Russian <0.10; W014-IgE Pigweed, Common <0.10; W018-IgE Sheep Sorrel <0.10
[2024-03-25 10:03] LABS: Aspergillus fumigatus IgG NEGATIVE; E072-IgE Mouse Urine <0.10; Pigeon Serum Abs NEGATIVE
== END 2024-02-28 23:59 | disposition home or self-care (01) ==
LOC: RAD 12:18
PROVIDERS: PCP Family Medicine; Visit Provider Internal Medicine Pulmonary Disease
DX: R04.2 Hemoptysis (principal); R93.89 Abnormal findings on diagnostic imaging of other specified body structures; J84.10 Pulmonary fibrosis, unspecified; R91.1 Solitary pulmonary nodule; J30.9 Allergic rhinitis, unspecified; J84.9 Interstitial pulmonary disease, unspecified; R06.09 Other forms of dyspnea
CPT/HCPCS: 36415; 71275; 82785; 86003; 86140; 86331; 86602; 86606; 86609; 86612; 86698; 87449; Q9967

== ENCOUNTER 2024-03-03 15:41 | Outpatient (CLI) | payer MEDICARE, SELFPAY | END 2024-03-03 23:59 | disposition home or self-care (01) | LOC: LAB.DROPOF 15:42 | PROVIDERS: PCP Family Medicine; Visit Provider Internal Medicine Pulmonary Disease | DX: J13 Pneumonia due to Streptococcus pneumoniae (principal); R04.2 Hemoptysis; R93.89 Abnormal findings on diagnostic imaging of other specified body structures; R91.8 Other nonspecific abnormal finding of lung field; J47.9 Bronchiectasis, uncomplicated | CPT/HCPCS: 87070; 87077; 87116; 87186; 87205; 87206; 87220 ==

== ENCOUNTER 2024-06-01 10:11 | Outpatient (CLI) | payer MEDICARE, SELFPAY ==
--- NOTE | 2024-06-01 10:11 | CT_ITS ---
FINAL REPORT TECHNIQUE: Axial imaging of the chest was obtained without contrast. Reformatted images were also obtained and reviewed.This study was performed with techniques to keep radiation doses as low as reasonably achievable, (ALARA). Individualized dose reduction technique using automated exposure control or adjustment of mA and/or kV according to the patient's size were employed. CLINICAL HISTORY: 3-month follow-up COMPARISON: 02/28/2024 FINDINGS: There is no axillary adenopathy. There are multiple small mediastinal lymph nodes, favor reactive. There are moderate coronary artery calcifications. Heart size is normal. There is no pericardial or pleural effusion. Limited images of the upper abdomen are unremarkable. Patchy airspace opacities in the right upper lobe have slightly improved. There is persistent peribronchial thickening in the upper lobes, right greater than left. There are small areas of parenchymal opacity in the left upper lobe and bilateral lower lobes which have overall slightly improved. IMPRESSION: Overall slight improvement in airspace opacities, favor atypical pneumonia. If not already performed, recommend bronchoscopy with attention to the right upper lobe. Reviewed, Interpreted and Dictated by Huey Gipson MD Transcribed by Jewels Gonzalez Authenticated and . [facility]
== END 2024-06-01 23:59 | disposition home or self-care (01) ==
LOC: RAD 10:11
PROVIDERS: PCP Family Medicine; Visit Provider Internal Medicine Pulmonary Disease
DX: R91.8 Other nonspecific abnormal finding of lung field (principal)
CPT/HCPCS: 71250

== ENCOUNTER 2024-11-29 14:59 | Outpatient (CLI) | payer MEDICARE, SELFPAY ==
--- NOTE | 2024-11-29 15:30 | CT_ITS ---
FINAL REPORT CLINICAL HISTORY: 6 mth f/u COMPARISON: 06/01/2024 FINDINGS: CT CHEST without contrast COMPARISON: 06/01/2024. TECHNIQUE: Axial CT without contrast This study was performed with techniques to keep radiation doses as low as reasonably achievable, (ALARA). Individualized dose reduction techniques using automated exposure control or adjustment of mA and/or kV according to the patient's size were employed. FINDINGS: There are multifocal areas of nodular consolidation and nodularity, most of which are stable when compared to the prior exam. There is minimal improvement in the right upper lobe, with a significant increase in opacities in the right lower lobe best seen on images #42 through 45 of series 2. There is minimal worsening present in the left lung apex. Bronchial wall thickening and mild bronchiectasis is present in the upper lobes. No cavitation is present. No pleural or pericardial effusion is seen . Mediastinal adenopathy is once again noted, likely benign and reactive. IMPRESSION: Multifocal pulmonary abnormalities, with a few areas of increased nodular consolidation and nodularity, suggestive of infectious etiology such as mycobacterial or fungal disease. No evidence of cavitation is identified. No pleural effusions are present. This study was performed using automated techniques to achieve radiation exposure as low as reasonably achievable Reviewed, Interpreted and Dictated by Pauline Flores MD Transcribed by Valeria Mills Authenticated and [facility]
== END 2024-11-29 23:59 | disposition home or self-care (01) ==
LOC: RAD 15:00
PROVIDERS: PCP Family Medicine; Visit Provider Internal Medicine Pulmonary Disease
DX: R91.8 Other nonspecific abnormal finding of lung field (principal)
CPT/HCPCS: 71250

== ENCOUNTER 2024-12-26 11:06 | Outpatient (CLI) | payer MEDICARE, SELFPAY ==
[2024-12-26 11:28] VITALS: BMI 19.5
--- NOTE | 2024-12-26 11:54 | ECG_ITS ---
APPROVED REPORT Exam: Resting ECG HR:53 bpm ECG Measurements Heart Rate 53 AXES [place] 186 P 103 QRSd 104 QRS 32 QT 403 T 29 QTc 387 Conclusion SINUS BRADYCARDIA BORDERLINE ECG UNCONFIRMED REPORT Electronically signed by : Anthony Burks MD 12/27/2024 08:01:36
--- NOTE | 2024-12-26 11:56 | XR_ITS ---
FINAL REPORT CLINICAL HISTORY: PAT appt, pre-bronch COMPARISON: 11/29/2024 FINDINGS: PA and lateral views of the chest were obtained. The heart is normal in size. There is retraction of the pieter superiorly. There are bilateral nodular interstitial opacities asymmetric to the right. Findings are worse in the upper lobes but similar to prior CT. This could be related to infectious or inflammatory process, atypical organisms are not excluded. There is no pleural effusion or pneumothorax. No acute osseous abnormality is identified. IMPRESSION: Bilateral nodular interstitial opacities as above. Reviewed, Interpreted and Dictated by Angi Hancock MD Transcribed by Otilia Alvarez Authenticated and [facility]
[2024-12-26 13:39] LABS: Basophils % 0.6 % (0.1-2.0); Eosinophils # 0.2 K/mm3 (0.0-0.4); Eosinophils % 3.1 % (0.1-12.0); Hemoglobin 11.4 g/dL (12.2-16.2); Lymphocytes # 1.5 K/mm3 (0.7-4.5); Lymphocytes % 23.1 % (10-50); Mean Corpuscular HGB Conc 31.7 g/dL (31.8-35.4); Mean Corpuscular Hemoglobin 28.6 pg (27.0-31.2); Mean Corpuscular Volume 90.2 fl (81-99); Mean Platelet Volume 9.8 fl (7.4-10.4); Monocytes # 0.6 K/mm3 (0.1-1.0); Monocytes % 8.7 % (1.7-9.3); Neutrophils # 4.1 K/mm3 (1.8-7.8); Neutrophils % 64.2 % (37.0-80.0); Nucleated Red Blood Cells # 0 10^3/uL; Nucleated Red Blood Cells % 0 %; Platelet Count 195 K/mm3 (142-424); Red Blood Count 3.99 M/mm3 (4.20-5.40); Red Cell Distribution Width 12.6 % (11.5-17.5); Red Cell Distribution Width-SD 41.1 fL; White Blood Count 6.4 K/mm3 (4.8-10.8)
[2024-12-26 13:40] LABS: Chloride 103 mmol/L (98-107)
[2024-12-26 13:41] LABS: Potassium 4.6 mmoL/L (3.5-5.1); Sodium 138 mmol/L (136-145)
[2024-12-26 13:43] LABS: Blood Urea Nitrogen 19 mg/dl (7-17); Creatinine Clearance Estimated 33 mL/min (50-200); Estimated Glomerular Filt Rate 79 ml/min (>60); GFR (African American) 96 ML/MIN (>60)
[2024-12-26 13:44] LABS: Anion Gap 11.6 mEq/L (5-15); Calcium 9.3 mg/dl (8.4-10.2); Carbon Dioxide 28 mmol/L (22.0-30.0); Glucose 101 mg/dl (74-100)
== END 2024-12-26 23:59 | disposition home or self-care (01) ==
LOC: PREOP 11:08
PROVIDERS: PCP Family Medicine; Visit Provider Internal Medicine Pulmonary Disease
DX: Z85.850 Personal history of malignant neoplasm of thyroid (principal); Z01.811 Encounter for preprocedural respiratory examination; R91.8 Other nonspecific abnormal finding of lung field; R00.1 Bradycardia, unspecified; R94.31 Abnormal electrocardiogram [ECG] [EKG]
CPT/HCPCS: 71046; 80048; 85025; 93005

== ENCOUNTER 2025-01-01 10:36 | Day surgery (SDC) | payer MEDICARE, SELFPAY ==
[2024-12-26 11:34] VITALS: BMI 19.5
[2025-01-01] VITALS (8 sets, daily range): BP systolic 162–198; BP diastolic 69–109; PULSE 53–75; RESP 14–18; TEMP 36.1–36.9; O2SAT 91–96
[2025-01-01] MEDS: LACTATED RINGERS 1000ML 1,000 ML 25 ML IV (11:28)
--- NOTE | 2025-01-01 13:37 | XR_ITS ---
FINAL REPORT CLINICAL HISTORY: bronch with biopsy 2.1 min 9.61 mGy FINDINGS: FLUOROSCOPY LESS THAN 1 HOUR HISTORY: Fluoroscopy guidance. Fluoroscopic guidance was provided for bronchoscopy with biopsy. 2 spot films were obtained. A total of 2.1 minutes of fluoroscopy time were used. Total DAP: 9.61 mGy IMPRESSION: As above. Reviewed, Interpreted and Dictated by Angi Hancock MD Transcribed by Nancy Regalado Authenticated and [facility]
--- NOTE | 2025-01-01 13:51 | P.PNANES_ITS ---
[facility] Anesthesia Record Part I Anesthesia Record I Intake, IV Amount: 500 Hydration: Adequate Estimated blood loss (mL): 0 Urine output (mL): 0 Blood Products used (#): none Blood Pressure: 193/101 SaO2: 95 Pulse Rate: 69 Airway Patency: Patent Respiratory Rate: 14 Temperature: 97.0 F Patient is:: Awake, Nasal O2 and Stable Stable to PACU at:: 13:44
--- NOTE | 2025-01-01 13:55 | XR_ITS ---
FINAL REPORT CLINICAL HISTORY: post-bronch COMPARISON: 12/26/2024 FINDINGS: A portable view of the chest was obtained. The heart is mildly enlarged but stable. There are bilateral upper lobe coarse interstitial opacities with patchy airspace disease which have not significantly changed. Right basilar airspace opacity is also stable. There is no pleural effusion or pneumothorax post bronchoscopy. IMPRESSION: No pneumothorax post bronchoscopy. No significant interval change. Reviewed, Interpreted and Dictated by Angi Hancock MD Transcribed by Marely Elder Authenticated and [facility]
--- NOTE | 2025-01-01 15:10 | P.PCN_ITS ---
Procedure: Date: 01/01/25 Patient Date of :: 1940 Procedure Performed:: Bronchoscopy airway examination bronchoalveolar lavage and transbronchial lung biopsy Indications:: Bronchiectasis, pneumonia Performing Provider:: Leeanne Parisi MD Referring Provider:: Dr. Greenfield Sedation:: General anesthesia Procedure:: Bronchoscopy airway examination, bronchoalveolar lavage and transbronchial lung biopsy: A clean DIAGNOSTIC bronchoscopy was advanced through the ET tube and airways were examined up to subsegmental bronchi. Airways appeared grossly normal, no evidence , mucous plugging active ble eding/old blood clots noted. Scant amount of thick mucoid secretions were noted in the right upper and left upper lobe bronchi. Bronchoalveolar lavage was performed in the RIGHT UPPER LOBE with instillation of 60 cc normal saline with return of 20 cc back. BAL fluid was sent for cell count and differential along with bacterial fungal and AFB stain and cultures. Bronchoalveolar lavage was also performed of the left upper lobe with instillation of 60 cc of normal saline with 25 cc back. BAL fluid from the left upper lobe lavage was sent separately for cell count differential along with bacterial AFB fungal stain and cultures Transbronchial biopsy was performed in the RIGHT UPPER LOBE with a total of 7 biopsies performed, 5 biopsy specimens were sent in formalin for cytopathologic examination. The other 2 biopsy samples, were sent one each in two separate normal saline specimen cups for bacterial fungal and AFB stain cultures. Special request was also made for the pathologist to evaluate for AFB and fungal organisms on the cytopathologic examination. Patient tolerated the procedure with no immediate acute complications. We will follow the patient in pulmonary clinic in 7 to 10 days. Findings:: Please see the procedure note Recommendations:: Postoperative bronchoscopy instructions Follow in pulmonary clinic in 5 to 7 days Complications:: No acute immediate complication Estimated blood obtained (mL): 1
--- NOTE | 2025-01-02 10:31 | EXP.ANES.II ---
[facility] Anesthesia Record Part II Anesthesia Record Part II Discharge Time: 14:14 Destination: Surgical Day Care (OP Surgery) PACU nurse assessment reviewed?: Yes Patient Condition:: Fair Anesthesia Complications:: None Swallowing reflex intact?: Yes Airway Patency: Patent Cyanosis?: No Blood Pressure: 182/77 SaO2: 92 Respiratory Rate: 18 Pulse Rate: 64 Temperature: 98.5 F Mental Status: Alert & Oriented Pain level:: 0 Nausea and/or vomitting:: None Intake, IV Amount: 0 Hydration: Adequate
[2025-01-02 10:33] VITALS: BP 182/77; PULSE 64; RESP 18; TEMP 36.9; O2SAT 92
== END 2025-01-01 15:06 | disposition home or self-care (01) ==
PROVIDERS: PCP Family Medicine; Visit Provider Internal Medicine Pulmonary Disease
PROC: (CPT 31624; principal; 2025-01-01 12:00)
DX: J18.9 Pneumonia, unspecified organism (principal); J47.9 Bronchiectasis, uncomplicated; Z87.891 Personal history of nicotine dependence; R04.2 Hemoptysis; R91.8 Other nonspecific abnormal finding of lung field; R93.89 Abnormal findings on diagnostic imaging of other specified body structures
CPT/HCPCS: 31624; 31628; 71045; 87070; 87077; 87102; 87116; 87186; 87205; 87206; 89051; J3490; J1100; J2405; J3010; J7120